=== PATIENT | male | born 2000 | race Hispanic/Latino ===

== ENCOUNTER 2020-09-24 09:22 | Emergency (ER) | payer SELFPAY ==
[~2020-09-24] VITALS: Ht 167.6 cm; Wt 93.0 kg
== END 2020-09-24 10:09 | disposition home or self-care (01) ==
LOC: ER 09:40
DX: U07.1 COVID-19 (principal); R06.00 Dyspnea, unspecified; R05 Cough
CPT/HCPCS: 99282